=== PATIENT | male | born 1960 | race Caucasian/White ===

== ENCOUNTER 2018-08-15 22:08 | Emergency (ER) | payer OTHER ==
[~2018-08-15] VITALS: Ht 175.3 cm; Wt 83.7 kg
[2018-08-15] MEDS ORDERED: KETOROLAC TROMETHAMINE 30 MG/ML VIAL IV STA (22:34)
[2018-08-15] MEDS ORDERED: METOCLOPRAMIDE HCL 10 MG/2ML VIAL IV ONE (22:45)
[2018-08-15] MEDS ORDERED: SODIUM CHLORIDE 0.9% 1000ML 1,000 ML IV SCH ×2 (22:45→23:15)
[2018-08-15] MEDS ORDERED: POTASSIUM CHLORIDE 20 MEQ TAB CR PO STA (23:04)
--- NOTE | 2018-08-15 23:12 | Diagnostic Imaging Report ---
EXAMINATION: PA and lateral views of the chest. COMPARISON: None CLINICAL HISTORY: Headache, it see, chest pain DISCUSSION: Lines/tubes: None. Lungs: The lungs are well inflated and clear. There is no evidence of pneumonia or pulmonary edema. Pleura: There is no pleural effusion or pneumothorax. Heart and mediastinum: Cardiomediastinal silhouette is unremarkable. Pulmonary vasculature is normal. Bones and soft tissues: No acute bony abnormalities. IMPRESSION: No acute cardiopulmonary abnormalities. Signed by: Dr. Erwin Perdomo M.D. on 08/15/2018 11:09 PM
[2018-08-15] MEDS ORDERED: INSULIN REGULAR, HUMAN 100 UNIT/1 ML 3ML VIAL SQ ONE (23:15)
[2018-08-16 01:10] VITALS: BP 142/86
== END 2018-08-16 01:09 | disposition home or self-care (01) ==
LOC: FSED 22:08
DX: G44.209 Tension-type headache, unspecified, not intractable (principal); R11.0 Nausea; R07.89 Other chest pain; E11.65 Type 2 diabetes mellitus with hyperglycemia
CPT/HCPCS: 71046; 80053; 82553; 82948; 84484; 85025; 93005; 96372; 96374; 96375; 99284